=== PATIENT | female | born 1995 | race Caucasian/White ===

== ENCOUNTER 2021-06-03 17:24 | Observation (INO) | payer MEDICAID ==
[~2021-06-03] VITALS: Ht 165.1 cm; Wt 99.8 kg
== END 2021-06-03 19:45 | disposition home or self-care (01) ==
LOC: 8 EST LDRP 17:24
PROVIDERS: ADMIT Specialist; ATTEND Specialist
DX: O26.893 Other specified pregnancy related conditions, third trimester (principal); R03.0 Elevated blood-pressure reading, without diagnosis of hypertension; Z3A.36 36 weeks gestation of pregnancy
CPT/HCPCS: 59025; G0378; 99281